=== PATIENT | female | born 2000 | race Caucasian/White ===

== ENCOUNTER 2022-03-18 13:12 | Emergency (ER) | payer MEDICAID ==
[~2022-03-18] VITALS: Ht 170.2 cm; Wt 185.0 kg
[2022-03-18 13:48] VITALS: BP 116/58
[2022-03-18] MEDS ORDERED: ACETAMINOPHEN 325MG TABLET PO ONE (15:45)
[2022-03-18] MEDS ORDERED: ALBU6.7H3 INH (16:00)
[2022-03-18] MEDS ORDERED: PSEU120T56 MT (16:50)
== END 2022-03-18 17:16 | disposition home or self-care (01) ==
LOC: ER 13:12
DX: R05.8 Other specified cough (principal); J02.9 Acute pharyngitis, unspecified; R50.9 Fever, unspecified; R09.81 Nasal congestion; Z20.822 Contact with and (suspected) exposure to COVID-19; J45.909 Unspecified asthma, uncomplicated
CPT/HCPCS: 81025; 87426; 99283; C9803